=== PATIENT | male | born 1960 | race Caucasian/White ===

== ENCOUNTER 2019-02-09 13:11 | Inpatient (IN) ==
[2019-02-09] MEDS ORDERED: ASPIRIN PO ONE (13:16)
--- NOTE | 2019-02-09 13:38 | PROVIDER DOCUMENTATION ---
HPI-Chest Pain - General Chief Complaint: Chest Pain Stated Complaint: HEART PT-CP Time Seen by Provider: 02/09/19 13:21 Source: patient Allergies/Adverse Reactions: Patient Allergies Allergy/AdvReac Type Severity Reaction Status Date / Time No Known Allergies Allergy Verified 02/09/19 13:15 Home Medications: Home Medication List Medication Instructions Recorded Confirmed Last Taken Type Clonidine HCl 0.1 mg PO TID PRN #60 tablet 02/16/18 Unknown Rx Hydrocodone/APAP 5 mg/325 mg 1 tab PO Q6H PRN PRN #12 tab 08/12/18 Unknown Rx [[place]-5] - History of Present Illness-CP Nature of Presenting Problem: Pt. is 58 yom that presents with c/o chest pressure for two days. He reports he recently had stints placed at several months ago. He states yesterday he was coming to the ED but belched and felt better so he waited but today he is no better. He denies any N/V, but states he gets SOB with any exertion. He denies any other complaint. Location: reports: substernal. denies: central, epigastric, shoulder, back, abdomen, other Chest Pain Radiation: reports: no radiation. denies: jaw, arms, neck, shoulders, back, sternal notch, epigastric, other Quality of Pain: reports: pressure, tightness. denies: aching, indigestion, throbbing Severity in ED: mild Onset/Duration: gradual, 2 days ago Timing: still present Context/Activities at Onset: reports: none. denies: light activity, moderate ac tivity, vigorous activity, recent emotional stress, recent physical stress, recent trauma history, possible bad food, cold exposure, eating, out of country travel, rest, sleep, sexual activity, other Modifying Factors: improves with: nothing Associated Symptoms: reports: heartburn. denies: denies symptoms, abdominal pain, back pain, diaphoresis, dizziness, edema, fatigue, fever/chills, headache, nausea, rash, shortness of breath, swelling/lump in chest, syncope, vomiting, weakness Nitro Today/Relief: no nitro taken today Aspirin Treatment Today: 81 mg x 1, provided at home Prior Chest Pain/Cardiac Workup: reports: cardiac cath (In the last several months with stint placement) Similar Symptoms Previously?: No Recently Seen Here or By Another Healthcare Provider: No Review of Systems - Adult - REVIEW OF SYSTEMS - ADULT Constitutional: reports: no symptoms reported Eyes: reports: no symptoms reported Ears, Nose, Mouth & Throat: reports: no symptoms reported Cardiovascular: reports: see HPI, chest pain. denies: orthopnea, palpitations, poor circulation, syncope Respiratory: reports: see HPI, dyspnea on exertion, shortness of breath. denies: chronic cough, hemoptysis, pleurisy Gastrointestinal: reports: see HPI, frequent heartburn. denies: constipation, difficulty swallowing, vomiting Genitourinary: reports: no symptoms reported Musculoskeletal: reports: no symptoms reported Integumentary: reports: no symptoms reported Neurological: reports: no symptoms reported Psychiatric: reports: no symptoms reported Past History - Adult - PAST MEDICAL HISTORY-ADULT Review of Records: reports: Old Records Reviewed, Nursing Assessment Review, Medications Reviewed, Social history reviewed & non-contributory. Cardiovascular: reports: CAD, HTN, hyperlipidemia Gastrointestinal: reports: GERD Neurological: reports: CVA Other Conditions: reports: denies history - PRIOR SURGERIES/PROCEDURES Surgical/Procedure History: reports: cardiac stent, hernia repair - IMMUNIZATION STATUS Childhood Immunizations: See Nurse Assessment Flu Vaccine: See Nurse Assessment - FAMILY HISTORY Family History: reviewed, not pertinent - SOCIAL HISTORY Smoking: non-smoker Physical Exam-General - PHYSICAL EXAM-ADULT Initial Vital Signs Reviewed: Yes - CONSTITUTIONAL General Appearance: alert, no apparent distress. negative: anxious, slow to respond, obtunded, combative - EYES Eyes: PERRL/EOMI, pink conjunctivae - HEAD, EARS, NOSE, MOUTH & THROAT HENMT: normocephalic/atraumatic, moist mucous membranes - NECK Neck: non-tender, full range of motion, supple, normal inspection - RESPIRATORY Respiratory: lungs clear, normal breath sounds - CARDIOVASCULAR Cardiovascular: regular rate, rhythm, no JVD, bradycardia. negative: extra beats, friction rub, irregularly irregular - GASTROINTESTINAL (ABDOMEN) Abdominal Exam: normal bowel sounds, non tender, soft - LYMPHATIC Lymphatic: no adenopathy. negative: axilla node tender, cervical node tenderness - MUSCULOSKELETAL Back Exam: normal inspection, no CVA tenderness, no vertebral tenderness Extremity: normal range of motion, non-tender, normal gait, normal inspection Peripheral Pulses: radial (R): 2+, radial (L): 2+ - SKIN Integumentary: normal color, normal turgor, warm/dry - NEUROLOGIC Neurologic: grossly normal, no motor/sensory deficits - PSYCHIATRIC Psych/Mental Status: normal mood/affect, normal thought content, normal thought process, oriented x 3. negative: anxious, paranoid, tearful - HEART Score HEART Score: History: Highly Suspicious HEART Score: ECG: Normal HEART Score: Age: 45-65 Years HEART Score: Risk Factors for Atherosclerotic Disease: > or = 3 Risk Factors or History of Atherosclerotic Disease HEART Score: Troponin: < or = Normal Limit Total HEART Score:: 5 Progress - PLAN OF CARE/RESULTS Progress/Plan/Lab Results: Vital Signs - 8 hr 02/09/19 13:12 02/09/19 13:26 02/09/19 14:46 Temperature 97 F L Pulse Rate 54 L 50 L 46 L Respiratory Rate 16 19 16 Blood Pressure 149/91 129/90 128/87 O2 Sat by Pulse Oximetry 99 98 95 Laboratory Results - last 24 hr 02/09/19 02/09/19 02/09/19 13:45 13:45 13:45 WBC 5.65 RBC 4.76 Hgb 15.0 Hct 43.6 MCV 91.6 MCH 31.5 H MCHC 34.4 RDW Std Deviation 12.7 Plt Count 193 MPV 10.6 H Neut % (Auto) 56.1 Lymph % (Auto) 30.3 [place] % (Auto) 11.2 H Eos % (Auto) 1.9 Baso % (Auto) 0.5 Neut # (Auto) 3.17 Lymph # (Auto) 1.71 Alger # (Auto) 0.63 H Eos # (Auto) 0.11 Baso # (Auto) 0.03 PT INR PTT (Actin FS) Sodium 137 Potassium 4.3 Chloride 98 Carbon Dioxide 28 Anion Gap 11 BUN 18 Creatinine 1.4 H Estimated GFR/1.73 m2 52 BUN/Creatinine Ratio 13 Glucose 89 Calculated Osmolality 275 Calcium 9.6 Total Bilirubin 0.43 AST 26 ALT 39 Alkaline Phosphatase 76 Creatine Kinase 287 H Creatine Kinase Index 0.8 CK-MB (CK-2) 2.20 Troponin T Bmw-T-Tyldejngqwc Pept 44 Total Protein 7.2 Albumin 4.6 Globulin 2.6 Albumin/Globulin Ratio 1.8 02/09/19 02/09/19 13:45 13:45 WBC RBC Hgb Hct MCV MCH MCHC RDW Std Deviation Plt Count MPV Neut % (Auto) Lymph % (Auto) [place] % (Auto) Eos % (Auto) Baso % (Auto) Neut # (Auto) Lymph # (Auto) [place] # (Auto) Eos # (Auto) Baso # (Auto) PT 13.8 INR 0.98 PTT (Actin FS) 29.0 Sodium Potassium Chloride Carbon Dioxide Anion Gap BUN Creatinine Estimated GFR/1.73 m2 BUN/Creatinine Ratio Glucose Calculated Osmolality Calcium Total Bilirubin AST ALT Alkaline Phosphatase Creatine Kinase Creatine Kinase Index CK-MB (CK-2) Troponin T < 0.010 Vfv-P-Eoxofafbtor Pept Total Protein Albumin Globulin Albumin/Globulin Ratio Orders Category Date Time Status Cardiac Monitoring DIRECTED Care 02/09/19 13:17 Active Oxygen Therapy- ED Nursing DIRECTED Care 02/09/19 13:17 Active Saline Loc NOW Care 02/09/19 13:17 Active CHEST-2 VIEWS [RAD] Stat Exams 02/09/19 13:17 Taken CBC WITH ELECTRONIC DIFF [HEME] Stat Lab 02/09/19 13:45 Completed CK PROFILE [SP CHEM] Stat Lab 02/09/19 13:45 Completed COMPREHENSIVE METABOLIC PANEL [CHEM] Stat Lab 02/09/19 13:45 Completed PRO B-NATRIURETIC PEPTIDE Stat Lab 02/09/19 13:45 Completed PROTIME WITH INR [COAG] Stat Lab 02/09/19 13:45 Completed PTT [COAG] Stat Lab 02/09/19 13:45 Completed TROPONIN T Stat Lab 02/09/19 13:45 Completed Aspirin Med 02/09/19 13:16 Discontinued 325 mg PO NOW ONE CP/SOB/Palp >45 yrs of Age Stat Oth 02/09/19 13:16 Ordered EKG [EKG] Stat Ther 02/09/19 13:17 Ordered Laboratory Tests 02/09/19 02/09/19 02/09/19 13:45 13:45 13:45 WBC 5.65 RBC 4.76 Hgb 15.0 Hct 43.6 MCV 91.6 MCH 31.5 H MCHC 34.4 RDW Std Deviation 12.7 Plt Count 193 MPV 10.6 H Neut % (Auto) 56.1 Lymph % (Auto) 30.3 Alger % (Auto) 11.2 H Eos % (Auto) 1.9 Baso % (Auto) 0.5 Neut # (Auto) 3.17 Lymph # (Auto) 1.71 Alger # (Auto) 0.63 H Eos # (Auto) 0.11 Baso # (Auto) 0.03 PT INR PTT (Actin FS) Sodium 137 Potassium 4.3 Chloride 98 Carbon Dioxide 28 Anion Gap 11 BUN 18 Creatinine 1.4 H Estimated GFR/1.73 m2 52 BUN/Creatinine Ratio 13 Glucose 89 Calculated Osmolality 275 Calcium 9.6 Total Bilirubin 0.43 AST 26 ALT 39 Alkaline Phosphatase 76 Creatine Kinase 287 H Creatine Kinase Index 0.8 CK-MB (CK-2) 2.20 Troponin T Ugg-T-Habkdkqmebl Pept 44 Total Protein 7.2 Albumin 4.6 Globulin 2.6 Albumin/Globulin Ratio 1.8 02/09/19 02/09/19 13:45 13:45 WBC RBC Hgb Hct MCV MCH MCHC RDW Std Deviation Plt Count MPV Neut % (Auto) Lymph % (Auto) Alger % (Auto) Eos % (Auto) Baso % (Auto) Neut # (Auto) Lymph # (Auto) Alger # (Auto) Eos # (Auto) Baso # (Auto) PT 13.8 INR 0.98 PTT (Actin FS) 29.0 Sodium Potassium Chloride Carbon Dioxide Anion Gap BUN Creatinine Estimated GFR/1.73 m2 BUN/Creatinine Ratio Glucose Calculated Osmolality Calcium Total Bilirubin AST ALT Alkaline Phosphatase Creatine Kinase Creatine Kinase Index CK-MB (CK-2) Troponin T < 0.010 Ocf-L-Ckcnoxdabcf Pept Total Protein Albumin Globulin Albumin/Globulin Ratio Discussed results and plan of care with patient. Patient agrees with plan and verbalizes understanding. Result Diagrams: 02/09/19 13:45 02/09/19 13:45 - EKG 1 Time of EKG reading by physician:: 13:34 EKG Read and Signed by:: Juan Carlos Montana EKG Interpretation (*Must complete 3 of following elements*): Abnormal Rate: 49 Rhythm: Sinus Mak - XRAY 1 XRAY Study: Chest XRAY Interpretation: STEPHEN Guerrero) - CONSULTS/PCP/HOSPITALIST Notification #1 *Consult/PCP/Hospitalist*: MIGUEL ÁNGEL Martinez for Dr. Ryder Time Discussed: 14:56 Reason/Comments: Admission Consult Disposition: Will see in ED, Admit Departure - Departure Date of Disposition Decision: 02/09/19 Time of Disposition Decision: 14:53 DIAGNOSIS: Chest pain Qualifiers: Chest pain type: unspecified Qualified Code(s): R07.9 - Chest pain, unspecified Disposition: ADMITTED INPATIENT 09 Certified Medical Emergency: Emergent Condition: Stable Referrals and Follow-Ups: Shahrzad Hand [Primary Care Provider] - - Critical Care Note This patient required my direct & personal management of CC.: No Attestation - Physician/ MITCH Attestation Patient care was provided by Advanced Practice Provider:: Yes Advanced Practice Provider:: Jewell Vazquez Advanced Practice Provider documentation review:: The Mid-level provider documentation, treatment plan and medical decision making was reviewed by the physician who agrees with all treatment and medical decision making by the MLP. The physician spent face to face time with patient:: No Advanced Practice Provider documentation review:: Supervising physician onsite and consulted in the evaluation and care of this patient. The physician did not have a face to face encounter with the patient.
[2019-02-09 14:02] LABS: BASO# 0.03 X1000 (0.0-0.2); BASO% 0.5 % (0.0-0.8); EOS# 0.11 X1000 (0.0-0.7); EOS% 1.9 % (0.0-10.0); HEMATOCRIT 43.6 % (42.0-52.0); LYMPH# 1.71 X1000 (1.2-3.4); LYMPH% 30.3 % (20.5-51.1); MCH 31.5 PG (27-31); MCHC 34.4 g/dL (33-37); MCV 91.6 FL (81-99); MONO# 0.63 X1000 (0.11-0.59); MONO% 11.2 % (1.7-9.3); MPV 10.6 FL (7.4-10.4); NEUT# 3.17 X1000 (1.4-6.5); NEUT% 56.1 % (42.2-75.2); PLT 193 X1000 (130-400); RBC 4.76 XMIL (4.7-6.1); RDW 12.7 % (11.5-14.5); WBC 5.65 X1000 (4.8-10.8)
[2019-02-09 14:19] LABS: INR 0.98; PROTIME 13.8 Seconds (11.0-16.0)
[2019-02-09 14:31] LABS: ALB/GLOB RATIO 1.8; ALBUMIN 4.6 g/dL (3.5-5.0); CALCIUM 9.6 mg/dL (8.8-10.2); CREATININE 1.4 mg/dL (0.7-1.2); POTASSIUM 4.3 mmol/L (3.5-5.1); TOTAL BILIRUBIN 0.43 mg/dL (0.20-1.00); TOTAL PROTEIN 7.2 g/dL (6.3-8.3)
[2019-02-09 14:51] LABS: CK INDEX 0.8 (0.0-2.5); CK-MB 2.2 ng/mL (0.0-5.0)
--- NOTE | 2019-02-09 16:06 | Diag Imaging Result Doc PS360 ---
EXAM: CHEST-2 VIEWS INDICATION: cp TECHNIQUE: 2 views COMPARISON: 02/16/2018 FINDINGS: The lungs are grossly clear. There is no discrete pleural fluid collection or pneumothorax. The cardiomediastinal silhouette and central vasculature are grossly unremarkable. IMPRESSION: No evidence of acute pathology by plain radiograph. Electronically signed by Collin Hanson 02/09/2019 4:03 PM
[2019-02-09] MEDS ORDERED: NITROGLYCERIN SL PRN ×2 (17:08)
[2019-02-09] MEDS ORDERED: ZOFRAN IV PRN (17:08)
[2019-02-09] MEDS ORDERED: TYLENOL PO PRN (17:08)
[2019-02-09 18:33] LABS: CK INDEX 0.8 (0.0-2.5); CK-MB 2.27 ng/mL (0.0-5.0)
--- NOTE | 2019-02-09 20:54 | EKG Report ---
Test Performed on : 02/09/2019 1:17:48 PM Test Reason : cp Blood Pressure : / mmHG Vent. Rate : 049 BPM Atrial Rate : 049 BPM P-R Int : 166 ms QRS Dur : 116 ms QT Int : 484 ms P-R-T Axes : 040 -24 053 degrees QTc Int : 437 ms Sinus bradycardia. Possible Anterior infarct (cited on or before 16-FEB-2018) Abnormal ECG When compared with ECG of 16-FEB-2018 12:28, Nonspecific T wave abnormality, worse in Lateral leads Unconfirmed Result
[2019-02-09] MEDS: NS 1,000 ML IV SCH (21:29)
--- NOTE | 2019-02-09 22:50 | HISTORY AND PHYSICAL ---
PRIMARY CARE PROVIDER: Dr. Shahrzad Hand. CREW LEADER: Dr. Kelly. CHIEF COMPLAINT: Chest heaviness and lightheadedness for 4-5 days. HISTORY OF PRESENT ILLNESS: Mr. Stevens is a 58-year-old male who carries a past medical history of probable VA; however, he does not remember having an VA. He went to [facility] at least a year to a year and a half ago, and received a stent. Hypertension, hyperlipidemia, GERD. He came to the ED complaining of epigastric chest heaviness. He felt like someone was sitting on his chest. He has been lightheaded over the last 4-5 days. It has continued to increase. The pain is relieved with rest, and now with any exertion he gets this heaviness and lightheadedness, as well as an increasing in shortness of breath. He states a couple of months ago he was fully evaluated by Dr. Kelly. He underwent an MRI, echocardiogram as well as wore a heart monitor for some time. He states he turned that in over a month ago. He was found to be bradycardic. They cut his Coreg in half; however, he did take his Coreg this a.m. He feels like he was having the same symptoms that he had a few months ago when he followed up with Dr. Kelly. He was having the same chest discomfort and lightheadedness. His heart rate was in the 50s in the ED. He has had 1 set of negative cardiac enzymes. We will admit him in observation status, continue to trend his cardiac enzymes as well as give him some IV fluids for a probable acute kidney injury. Unsure if there is any chronic kidney disease. The patient is a poor historian. REVIEW OF SYSTEMS: Twelve-point review of systems completed and negative except for those mentioned in HPI. PAST MEDICAL HISTORY: 1. Coronary artery disease, status post myocardial infarction with stenting. 2. Hypertension. 3. Hyperlipidemia. 4. Questionable TIA. The patient did undergo MRI. He was unsure if this was an actual diagnosis or just contributing to his bradycardia. PAST SURGICAL HISTORY: 1. Double hernia repair. 2. Bilateral plantar fasciitis release. 3. Bilateral knee arthroscopy. 4. Left carpal tunnel. 5. Right wrist tendon reattachment. 6. Heart catheterization in [place] in 2003. He does not believe that he received a stent at that time. 7. Heart catheterization with stent placement at [facility] at least a year to a year and a half ago. ALLERGIES: No known drug allergies. MEDICATIONS: Home medications have not correctly been verified. The patient showed me his medication list. He takes aspirin, Coreg, valsartan, Lipitor, Norvasc, Prilosec, Imdur, Ranexa and Plavix; however, he has not had his Plavix filled in an unknown length of time. PHYSICAL EXAMINATION: VITAL SIGNS: Temperature is 97 degrees, heart rate 48, respirations 21, blood pressure 137/90, O2 is 96% on room air. GENERAL: Mr. Stevens is a 58-year-old male who is sitting on the stretcher in no acute distress. HEENT: Atraumatic, normocephalic. PERRL. NECK: Supple. Trachea midline. CARDIOVASCULAR: S1, S2 appreciated. No murmurs, gallops or rubs noted. RESPIRATORY: Lung sounds clear bilaterally. GASTROINTESTINAL: Soft, nontender, nondistended. Positive bowel sounds x4 quadrants. EXTREMITIES: Lower extremities are negative for edema. He does have a knee brace on his left knee. SKIN: Warm, dry and intact. NEUROLOGIC: No focal deficits noted. DIAGNOSTIC DATA: Chest x-ray: No evidence of acute pathology. LABORATORY DATA: White count 5, hemoglobin and hematocrit 15 and 43, platelet count 193,000. Sodium 137, potassium 4.3, BUN 18, creatinine 1.4, blood glucose is 89. CK 287, CK index 0.8, CK- MB 2.20. Troponin less than 0.010. ProBNP was 44. ASSESSMENT AND PLAN: 1. Atypical chest pain in a patient with known coronary artery disease, status post stenting. We will continue to monitor patient's cardiac enzymes. First set was negative. He did have an echocardiogram back in 10/2018 that showed an ejection fraction of 50%. We will continue on his home medications when verified. Check a lipid profile in the a.m. The patient is somewhat of a poor historian. 2. Acute kidney injury. We will initiate him on some low-dose intravenous fluids. Recheck his creatinine in the morning. 3. Hypertension. Continue home medications when verified. 4. Bradycardia. We will hold his Coreg. 5. Hyperlipidemia. Continue his Lipitor. Check a lipid profile. Further recommendation to follow physician evaluation, laboratory and diagnostic data. Dictated by MIGUEL ÁNGEL Mills for Kaveh Ryder MD cc: MD Shahrzad Amanda MD Agree with the above. the following is my own face to face assessment. patient with chest pressure and dyspnea on exertion. reportedly had significant bradycardia previously resulting in symptoms but no significant issues on recent holter monitor. slightly bradycardic here but history concerning for cardiac event. initial troponin negative. trend troponins and monitor on tele. heart: RRR. Lungs: CTAB. no LE edema. MTDD
[2019-02-10 02:29] LABS: CK INDEX 0.9 (0.0-2.5)
[2019-02-10] MEDS: PRILOSEC PO SCH (06:17)
[2019-02-10 07:14] LABS: BASO# 0.03 X1000 (0.0-0.2); BASO% 0.5 % (0.0-0.8); EOS# 0.15 X1000 (0.0-0.7); EOS% 2.6 % (0.0-10.0); HEMATOCRIT 44.1 % (42.0-52.0); HEMOGLOBIN 15.1 g/dL (14.0-18.0); LYMPH# 1.61 X1000 (1.2-3.4); LYMPH% 28.1 % (20.5-51.1); MCH 31.5 PG (27-31); MCHC 34.2 g/dL (33-37); MCV 91.9 FL (81-99); MONO# 0.64 X1000 (0.11-0.59); MONO% 11.2 % (1.7-9.3); NEUT% 57.6 % (42.2-75.2); PLT 195 X1000 (130-400); RDW 12.7 % (11.5-14.5); WBC 5.73 X1000 (4.8-10.8)
[2019-02-10 07:33] LABS: AGAP 9; ALB/GLOB RATIO 1.6; ALBUMIN 4.1 g/dL (3.5-5.0); ALKALINE PHOSPHATASE 74 U/L (32-122); BUN 15 mg/dL (8-22); CALCIUM 9.2 mg/dL (8.8-10.2); CHLORIDE 101 mmol/L (98-107); CHOLESTEROL 220 mg/dL (0-200); COSMO 278; CREATININE 1.2 mg/dL (0.7-1.2); ESTIMATED GFR > 60; GLUCOSE 98 mg/dL (70-104); GOT 21 U/L (10-34); GPT 35 U/L (10-44); HDL 27 mg/dL (35-55); LDL 149 mg/dL; MAGNESIUM 2.1 mg/dL (1.5-2.7); POTASSIUM 4.1 mmol/L (3.5-5.1); SODIUM 139 mmol/L (136-145); TCO2 29 mmol/L (25-35); TOTAL BILIRUBIN 0.43 mg/dL (0.20-1.00); TOTAL PROTEIN 6.6 g/dL (6.3-8.3); TRIGLYCERIDES 220 mg/dL (39-160); VLDL 44 mg/dL
--- NOTE | 2019-02-10 07:57 | Diag Imaging Result Doc PS360 ---
EXAM: CHEST-PORTABLE INDICATION: Chest Pain TECHNIQUE: One view COMPARISON: 02/09/2019 FINDINGS: There is stable mild elevation of the right hemidiaphragm. The lungs are grossly clear. There is no discrete pleural fluid collection or pneumothorax. The cardiomediastinal silhouette and central vasculature are grossly unremarkable. IMPRESSION: No evidence of acute pathology by plain radiograph. Electronically signed by Collin Hanson 02/10/2019 7:54 AM
[2019-02-10] MEDS: NS 1,000 ML IV SCH (08:39)
[2019-02-10] MEDS ORDERED: ASPIRIN PO SCH (09:00)
[2019-02-10] MEDS ORDERED: RANEXA PO SCH (09:30)
[2019-02-10] MEDS ORDERED: COREG PO SCH (09:30)
[2019-02-10] MEDS: PLAVIX PO SCH (11:32)
[2019-02-10] MEDS: ASPIRIN EC PO SCH (11:33)
--- NOTE | 2019-02-10 13:26 | CARDIOLOGY CONSULTATION ---
DATE: 02/10/2019 CHIEF COMPLAINT ON PRESENTATION: Chest pain. HISTORY OF PRESENT ILLNESS: Mr. Stevens is a 58-year-old, white male with a history of coronary artery disease. He last had a cardiac catheterization in January of 2018. He was recently seeing Dr. Kelly, around a month ago, and had a down titration of his Coreg from 12.5 to 6.25 secondary to bradycardia. In the last 4 to 5 days, he has been getting relatively repetitive episodes of heaviness in his chest occurring with ambulation. They will resolve with rest. No diaphoresis. No shortness of breath occurring with these episodes. He reports compliance with all of his medications. PAST MEDICAL HISTORY: Significant for: 1. Coronary artery disease with previous PCI. His most recent catheterization was performed in January of 2018 in [place]. This demonstrated a normal left main. The left anterior descending was a diffusely diseased vessel in the mid segment up to 90% and a very small caliber vessel. The diagonal branch, likewise, was small in caliber and diffusely diseased up to 80-90%. The circumflex was small and essentially normal. There was a very large ramus with a 30-40% proximal narrowing after which there was a widely patent stent. The right coronary had mild luminal irregularities in the mid segment. Posterolateral branch was normal. Posterior descending artery had a distal 90% lesion in a small area. The ejection fraction on that study was 25%. 2. Hypertension. 3. Hyperlipidemia. 4. Ischemic cardiomyopathy. SOCIAL HISTORY: The patient denies any current tobacco use. FAMILY HISTORY: Significant for hypertension. REVIEW OF SYSTEMS: A 10 system review of systems is negative except for those things mentioned in the HPI. PHYSICAL EXAMINATION: He is afebrile, heart rate 53, blood pressure 139/85. General: No acute distress. HEENT: Oropharynx is moist. Normal dentition. Eye examination shows pink conjunctivae and white sclerae. Neck: Examination shows no obvious thyromegaly or thyroid tenderness. Cardiovascular: He sounds to be in a regular rate and rhythm. He has no murmurs. He has no S3. He has no lower extremity edema. He has no carotid bruits. JVP is less than 8. Chest: Examination is clear bilaterally. No increased work of breathing. His abdomen is soft, nontender, nondistended. He has no obvious organomegaly. Skin: Examination is warm and dry throughout, without any rashes. Neurologic: He is moving all extremities well. He has no lateralizing deficits. PERTINENT DATA: He had an EKG performed, demonstrating sinus rhythm. He has some evidence of anterior scar. His chest x-ray demonstrated no evidence of acute pathology. He had a nuclear scan in 2017. That was reviewed. His lab data shows white count of 5.7, his hematocrit is 44, his platelet count is 195,000. His sodium is 139, potassium is 4.1, his BUN is 15, creatinine is 1.2. His LDL was 149, his HDL was 27. His proBNP is 44. His cardiac enzymes are negative. ASSESSMENT: Mr. Stevens is a 58-year-old gentleman who has been experiencing episodes of angina after down titration of his antiischemic, Coreg. PLAN: I will restart his amlodipine as well as his Imdur. I will titrate up his Imdur to 60, titrate his Ranexa to 1000 b.i.d. I will increase his atorvastatin to 40 mg at bedtime. We will proceed with myocardial perfusion imaging. If the patient is ischemic in the anterior wall, then it appears most likely consistent with the LAD disease and I would probably continue to treat medically unless he continues to have symptoms. If he has ischemia in a new location like the lateral wall or the inferior wall, then may consider cardiac catheterization. Further recommendations to follow the stress testing. cc: Jem Huang MD
--- NOTE | 2019-02-10 15:54 | PROGRESS NOTE ---
DATE: 02/10/2019 INTERVAL HISTORY: The patient with no further episodes of dyspnea, chest pain, or lightheadedness. No acute events overnight. No new complaints. REVIEW OF SYSTEMS: Twelve point review of systems negative except as per interval history. LABS: CBC unremarkable. Complete metabolic panel unremarkable aside from BUN 15, creatinine 1.2, CK 231. HDL 27, LDL 149, triglycerides 220. VITALS: T-max 97.9 degrees, pulse 63, respirations 16, blood pressure 139/85, O2 saturation 99% on room air. PHYSICAL EXAMINATION: General: No acute distress. Vitals: As above. HEENT: Normocephalic, atraumatic. Moist mucous membranes. No cervical adenopathy. Cardiovascular: Slightly bradycardic but regular. No murmurs noted. Pulmonary: Clear to auscultation bilaterally. No wheezing, rales, or rhonchi. Abdomen: Soft, nontender, nondistended. Bowel sounds positive. Extremities: Peripheral pulses intact. No clubbing, cyanosis, or edema. Neurologic: Cranial nerves grossly intact. No focal deficits identified. Psychiatric: Normal mood and affect. Awake, alert, oriented x3. Skin: No new rashes or lesions identified. ASSESSMENT AND PLAN: 1. Chest pain, dyspnea on exertion, dizziness. Etiology not entirely certain but strongly suspect cardiac origin. The patient reportedly had fairly significant bradycardia with Coreg previously, and his dose was reduced. Slightly mild bradycardia here. That is one possibility, although reportedly recent Holter showed no issues with his rhythm. The patient also with fairly severe heart failure, which could be the culprit. Cardiology consulted and evaluating. No events while he has been here. Cardiology planning on a stress test in the morning to further evaluate. 2. Acute kidney injury versus chronic kidney disease. The patient with creatinine 1.4 on admission. Exact baseline uncertain. Slightly improved today to 1.2 but suspect this is close to or at his baseline. Continue to monitor and avoid nephrotoxic agents as much as possible. 3. Chronic systolic congestive heart failure. Cardiology reports that the patient had a cardiac cath approximately a year ago where his EF was 25. Patient restarted on Plavix, Imdur, aspirin, Entresto. No signs of gross volume overload at this time. Continue to monitor. 4. Bradycardia. The patient with mild intermittent bradycardia off Coreg. Coreg restarted by Cardiology at a lower dose. Monitor closely. 5. Obesity. Diet and exercise have been discussed. 6. Pulmonary hypertension noted on most recent echo in our system.
--- NOTE | 2019-02-10 18:22 | EKG Report ---
Test Performed on : 02/10/2019 06:21:55 AM Test Reason : cp Blood Pressure : / mmHG Vent. Rate : 046 BPM Atrial Rate : 046 BPM P-R Int : 186 ms QRS Dur : 116 ms QT Int : 438 ms P-R-T Axes : 051 -33 106 degrees QTc Int : 383 ms Sinus bradycardia. Left axis deviation Possible Anterior infarct (cited on or before 16-FEB-2018) Abnormal ECG When compared with ECG of 09-FEB-2019 13:17, (Unconfirmed) QT has shortened Confirmed by Carlos Ling MD ([id number]) on 02/12/2019 9:10:54 PM
[2019-02-10] MEDS ORDERED: LIPITOR PO SCH (21:00)
[2019-02-10] MEDS: LIPITOR PO SCH (21:34)
[2019-02-10] MEDS: RANEXA PO SCH (21:34)
[2019-02-10] MEDS: ENTRESTO 49 MG-51 MG TABLET PO SCH (21:41)
[2019-02-11] MEDS: PRILOSEC PO SCH (06:09)
[2019-02-11] MEDS: COREG PO SCH ×3 (06:09→20:19)
[2019-02-11] MEDS ORDERED: PRILOSEC PO SCH (07:00)
[2019-02-11] MEDS ORDERED: IMDUR PO SCH (09:00)
[2019-02-11] MEDS ORDERED: LEXISCAN ONE (12:53)
[2019-02-11] MEDS: ASPIRIN EC PO SCH (13:02)
[2019-02-11] MEDS: ENTRESTO 49 MG-51 MG TABLET PO SCH ×2 (13:03→20:19)
[2019-02-11] MEDS: RANEXA PO SCH ×2 (13:03→20:19)
[2019-02-11] MEDS: IMDUR PO SCH (16:40)
[2019-02-11] MEDS: NORVASC PO SCH (16:40)
[2019-02-11] MEDS: PLAVIX PO SCH (16:40)
--- NOTE | 2019-02-11 17:32 | PROGRESS NOTE ---
DATE: 02/11/2019 INTERVAL HISTORY: The patient currently n.p.o. for stress test later this morning. No acute events overnight. No new complaints. REVIEW OF SYSTEMS: Twelve point review of systems negative except as per interval history. VITALS: T-max 98 degrees, pulse 62, respirations 20, blood pressure 144/90, O2 saturation 100% on room air. PHYSICAL EXAMINATION: General: No acute distress. Vitals: As above. HEENT: Normocephalic, atraumatic. Moist mucous membranes. No cervical adenopathy. Cardiovascular: Minimally bradycardic but regular. No murmurs noted. Pulmonary: Clear to auscultation bilaterally. No wheezing, rales, or rhonchi. Abdomen: Soft, nontender, nondistended. Bowel sounds positive. Extremities: Peripheral pulses intact. No clubbing, cyanosis, or edema. Neurologic: Cranial nerves grossly intact. No focal deficits identified. Psychiatric: Normal mood and affect. Awake, alert, oriented x3. Skin: No new rashes or lesions identified. ASSESSMENT AND PLAN: 1. Chest pain, dyspnea, dyspnea on exertion, dizziness. The etiology is not entirely certain but likely cardiac. Patient reportedly had fairly significant bradycardia with Coreg previously and his dose was reduced. Still mildly bradycardic here but asymptomatic with it over the last day or two. The patient also with fairly severe heart failure, which could be contributing. Cardiology on board and planning on stress test today to further evaluate. We will await further recommendations from cardiology. 2. Acute kidney injury versus chronic kidney disease. The patient with creatinine 1.4 on admission, exact baseline uncertain. Slight improved to 1.2, but just be slight lab variation. Recheck pending. Continue to monitor. 3. Chronic systolic congestive heart failure. Cardiology reports the patient had a heart catheterization at [place] approximately a year ago during which is ejection fraction was 25%. Patient restarted on Plavix, Imdur, aspirin and Entresto. No signs of gross volume overload at this time. Continue to monitor. 4. Bradycardia. Patient with mild intermittent bradycardia off Coreg. Coreg restarted by cardiology at a lower dose. Heart rate has remained roughly stable with mild bradycardia, but patient seems to be asymptomatic with it here. 5. Obesity. Diet and exercise been discussed. 6. Pulmonary hypertension noted on most recent echo in our system, stable.
--- NOTE | 2019-02-11 18:48 | CARDIOLOGY PROGRESS NOTE ---
DATE: 02/11/2019 SUBJECTIVE: The patient has not had any episodes of chest pain overnight. PHYSICAL EXAMINATION: He is afebrile. Heart rate of 54, blood pressure 144/93.General: He is in no acute distress. Cardiovascular: He sounds to be in a regular rate and rhythm. He has no murmurs, he has no S3. He has no lower extremity edema. His chest exam is clear bilaterally. He has no increased work of breathing. Abdomen: Soft, nontender. PERTINENT DATA: White count 5.7, hematocrit 44, platelet count is 195,000. His sodium is 139, potassium 4.1, BUN 15, creatinine 1.2. ASSESSMENT: Mr. Stevens is a 58-year-old gentleman with a ischemic cardiomyopathy. PLAN: He has had adjustment in his antianginals including increasing his Ranexa and increasing Imdur. He has been reinitiated on the carvedilol. For the time being we will follow up on the nuclear scan results. Notably had significant LAD disease previously that did not seem amenable to intervention as he had extremely small vessel. For now we will follow up on nuclear results and if it is unremarkable then he can likely be discharged home. cc: Jem Huang MD
[2019-02-11] MEDS: LIPITOR PO SCH (20:19)
--- NOTE | 2019-02-11 22:15 | Diag Imaging Result Document ---
PROCEDURE NAME: MYOCARDIAL PERF SCAN, STR/REST - 02/11/2019 STUDY: Rest/stress Lexiscan myocardial perfusion study. INDICATION: A 58-year-old male with chest pain. REQUESTING DOCTOR: Hospitalist. DESCRIPTION: The patient came into the nuclear laboratory, received resting injection of technetium 99 sestamibi 14.7 mCi. Multiple tomographic views of the cardiac structures were obtained at rest. Subsequently, the patient underwent infusion of Lexiscan 0.4 mg. At peak infusion, injected with technetium 99 sestamibi 47.8 mCi. Multiple tomographic views of the cardiac structures were obtained following the completion of the protocol. SUMMARY OF THE ELECTROCARDIOGRAPHIC PORTION OF THE STUDY: Resting ECG shows sinus rhythm, rate 59 beats per minute. Resting blood pressure is 133/95. Resting ECG shows a left anterior fascicular block with poor R wave progression. During the protocol, the heart rate increased to a maximum of 79 beats per minute. Blood pressure went up to 145/93. The patient reported no chest pain, shortness of breath, or palpitations. The ECG showed no significant abnormality. Following completion of the test, the heart rate and blood pressure returned back to their baseline. In summary, the electrocardiographic response to infusion of Lexiscan is deemed to be negative for ischemia. SUMMARY OF THE MYOCARDIAL PERFUSION PORTION OF THE STUDY: Poststress tomographic views of the left ventricle showed a very mild basal inferior and apical anterior defect. This is very focal. The rest images showed that this defect is fixed. The polar plots revealed the same. There is suggestion of attenuation of artifact involving the apical anterior wall in a very tiny area and also the basal inferior wall in a very tiny area. There is no convincing evidence of inducible ischemia. Gated SPECT shows decreased ejection fraction estimated at 44%, enlarged ventricular chamber, and global hypokinesis of mild degree. The Myometrix protocol shows ejection fraction of 39%. The lung/heart ratio is elevated at 0.46. The TID is 1.04. SUMMARY: This study shows: 1. Unremarkable electrocardiographic response to an infusion of Lexiscan. 2. Mildly abnormal poststress myocardial perfusion scan. There is no scintigraphic evidence of inducible ischemia. 3. There is enlargement of the left ventricular chamber with a tiny focal apical anterior defect as well as a focal basal inferior defect, both of which may represent attenuation artifact. 4. Mild to moderately decreased ejection fraction estimated at 39% to 44%. Clinical correlation is recommended. The study could be consistent with hypertensive heart disease. cc: James Neves MD
[2019-02-12] MEDS: PRILOSEC PO SCH (06:03)
[2019-02-12 08:15] LABS: BASO# 0.03 X1000 (0.0-0.2); BASO% 0.5 % (0.0-0.8); EOS# 0.24 X1000 (0.0-0.7); HEMATOCRIT 42.2 % (42.0-52.0); HEMOGLOBIN 14.6 g/dL (14.0-18.0); LYMPH# 1.24 X1000 (1.2-3.4); LYMPH% 20.7 % (20.5-51.1); MCH 31.1 PG (27-31); MCHC 34.6 g/dL (33-37); MONO# 0.65 X1000 (0.11-0.59); MONO% 10.9 % (1.7-9.3); MPV 10.8 FL (7.4-10.4); NEUT# 3.83 X1000 (1.4-6.5); NEUT% 63.9 % (42.2-75.2); PLT 183 X1000 (130-400); RBC 4.69 XMIL (4.7-6.1); RDW 12.3 % (11.5-14.5); WBC 5.99 X1000 (4.8-10.8)
[2019-02-12 08:47] LABS: AGAP 11; BUN 18 mg/dL (8-22); CHLORIDE 101 mmol/L (98-107); COSMO 276; CREATININE 1.1 mg/dL (0.7-1.2); ESTIMATED GFR > 60; GLUCOSE 101 mg/dL (70-104); POTASSIUM 4.3 mmol/L (3.5-5.1); SODIUM 137 mmol/L (136-145); TCO2 25 mmol/L (25-35)
[2019-02-12] MEDS: ENTRESTO 49 MG-51 MG TABLET PO SCH ×2 (08:54→20:49)
[2019-02-12] MEDS: PLAVIX PO SCH (08:54)
[2019-02-12] MEDS: ASPIRIN EC PO SCH (08:54)
[2019-02-12] MEDS: IMDUR PO SCH (08:54)
[2019-02-12] MEDS: COREG PO SCH (08:54)
[2019-02-12] MEDS: RANEXA PO SCH ×2 (08:54→20:49)
[2019-02-12] MEDS: NORVASC PO SCH (08:54)
--- NOTE | 2019-02-12 16:00 | CARDIOLOGY PROGRESS NOTE ---
DATE: 02/12/2019 SUBJECTIVE: Mr. Stevens has not had any chest pain. He is ambulating in the halls. Did have a little bit of lightheadedness early this morning. PHYSICAL EXAMINATION: Afebrile. Heart rate 54, blood pressure 116/69. He had a heart rate of 46 documented at 1942 yesterday, that seems to have been the low.General: He is in no acute distress. Cardiovascular: He sounds to be in a regular rate and rhythm. He has no murmurs. He has no S3. He has no lower extremity edema. Chest: Clear bilaterally. He has no increased work of breathing. Abdomen: Soft, nontender, nondistended. He has no obvious organomegaly. PERTINENT DATA: His telemetry was reviewed. It did not seem to show any significant degree of AV block. It is mild bradycardia. White count 5.9, hematocrit is 42, platelet count is 183,000. Sodium 137, BUN 18, creatinine is 1.1. LDL was 149. ASSESSMENT: Mr. Stevens is a 58-year-old gentleman with a history of coronary disease who presented with anginal symptoms. PLAN: The patient has had escalation of his antianginal medications including escalations of his Imdur and Ranexa. His Coreg was decreased secondary to relative bradycardia. He was placed on a higher intensity of statin therapy. At this point, we will have him follow up with Dr. Kelly in a couple weeks and do an outpatient KARIN to evaluate for bradycardia with his current beta-skyla dosage. His nuclear scan was performed and demonstrated what appeared to be fixed defect in the apex, which is consistent with his extremely small, severely diseased left anterior descending which previously has felt to be not a candidate for any sort of intervention. His ejection fraction was in the 40 to 44 percent range. He had no ischemic changes on his nuclear scan. cc: Jem Huang MD
--- NOTE | 2019-02-12 17:52 | PROGRESS NOTE ---
DATE: 02/12/2019 INTERVAL HISTORY: No acute events and Nuclear medicine stress test was unremarkable. There was no evidence of reversible ischemia on the Nuclear medicine stress test. SUBJECTIVE: He is feeling fine. In the morning time he had an episode of dizziness after he walked in the hallway And when he completed his shower. with heart rate of 40s when he was lying down in the bed. He is denying any chest pain. OBJECTIVE: Vital Signs: Temperature 97.5 degrees, pulse52 respiratory rate 18, blood pressure 120/75 saturating 98% on room air. PHYSICAL EXAMINATION: General: Morbidly obese. Not in acute distress. Oral cavity is moist. Lungs: Air entry bilaterally equal. No wheeze, rhonchi, crackles. Cardiovascular: S1, S2 normal. No murmur or gallop. Abdomen: Soft, nontender. He does have a heart rate of 55 on bedside monitor. Negative hepatojugular jugular reflex. No lower extremity edema. LABORATORY DATA: Suggestive of no abnormality in CBC or BMP. Nuclear medicine stress test results as noted was negative for any inducible ischemia with ejection fraction of 39 to 44%. ASSESSMENT AND PLAN: 1. Chest heaviness and dyspnea on exertion, likely because of residual LAD lesion, which was deemed not amenable to intervention. Cardiology on board. Nuclear medicine stress test was unremarkable for new inducible ischemia. His medical regimen has been optimized. Continue amlodipine, aspirin, clopidogrel, isosorbide mononitrate, and ranolazine with Entresto. His carvedilol dose is decreased to 3.125 b.i.d. 2. Episodes of dizziness occasionally intermittently coinciding with bradycardia. His carvedilol dose has already been decreased today during physical exertion he again developed dizziness. I am holding off on discharge until I get ultrasound of carotids to rule out any carotid stenosis which is unlikely, however, to contribute to his symptoms, but after discussion with the patient, I am going to go ahead and get the ultrasound carotid. 3. Acute kidney injury on presentation, now resolved. 4. Chronic systolic congestive heart failure. Continue medical management. He is not in volume overload. 5. Bradycardia due to beta blockers. His dose has been decreased. PLAN: The plan is to get an outpatient monitor at the time of discharge and outpatient Cardiology followup. DISPOSITION: I am holding off on discharge until I get carotid ultrasound to rule out any carotid artery stenosis since he does appear to have dizziness and blurring of vision occasionally after physical exertion, and sometimes at rest to rule out carotid artery stenosis. Plan of care discussed with him. All of his questions have been answered. cc: Luan Kent MD MTDD
[2019-02-12] MEDS: LIPITOR PO SCH (20:49)
[2019-02-13] MEDS: COREG PO SCH ×2 (02:10→09:10)
[2019-02-13] MEDS: PRILOSEC PO SCH (06:30)
[2019-02-13] MEDS: IMDUR PO SCH (09:10)
[2019-02-13] MEDS: PLAVIX PO SCH (09:10)
[2019-02-13] MEDS: ENTRESTO 49 MG-51 MG TABLET PO SCH (09:10)
[2019-02-13] MEDS: RANEXA PO SCH (09:10)
[2019-02-13] MEDS: ASPIRIN EC PO SCH (09:10)
[2019-02-13] MEDS: NORVASC PO SCH (09:10)
--- NOTE | 2019-02-13 10:32 | EKG Report ---
Test Performed on : 02/13/2019 10:05:18 AM Test Reason : chest pain Blood Pressure : / mmHG Vent. Rate : 056 BPM Atrial Rate : 056 BPM P-R Int : 164 ms QRS Dur : 114 ms QT Int : 464 ms P-R-T Axes : 024 -37 047 degrees QTc Int : 447 ms Sinus bradycardia. Left axis deviation Possible Anterior infarct (cited on or before 16-FEB-2018) Abnormal ECG When compared with ECG of 10-FEB-2019 06:21, Nonspecific T wave abnormality, improved in Lateral leads QT has lengthened Confirmed by Carlos Ling MD ([id number]) on 02/13/2019 8:52:30 PM
[2019-02-13 11:01] VITALS: BP 137/76
--- NOTE | 2019-02-14 07:50 | DISCHARGE SUMMARY ---
ADMISSION DATE: 02/09/2019 DISCHARGE DATE: 02/13/2019 DISCHARGE DISPOSITION: Home. DISCHARGE CONDITION: The patient has occasional episodes of chest discomfort and dizziness. His medication regimen has been optimized. Ultrasound of carotid results is pending. However, he had recent ultrasound performed at [facility] in October of 2018 which was unremarkable for carotid artery stenosis. DISCHARGE DIAGNOSES: 1. Anginal chest pain due to residual stenosis in LAD, not amenable to intervention considering the small size of the artery. 2. Episodic dizziness of unclear etiology. 3. Sinus bradycardia due to beta-skyla use. 4. Acute kidney injury due to poor oral intake. OTHER DIAGNOSES: 1. Chronic systolic congestive heart failure with reduced ejection fraction. 2. Essential hypertension. 3. Hyperlipidemia. 4. Chronic gastroesophageal reflux disease. DISCHARGE MEDICATIONS: 1. Atorvastatin 20 mg at nighttime. 2. Aspirin 81 mg daily. 3. Entresto 51 mg tablet 1 tablet b.i.d. 4. Isosorbide mononitrate extended release 30 mg daily. 5. Amlodipine 10 mg daily. 6. Omeprazole 20 mg daily. 7. Clopidogrel 75 mg daily. 8. Carvedilol 3.125 mg b.i.d. 60 tablets have been prescribed. 9. Ranolazine 1000 mg b.i.d. 120 tablets have been prescribed. VITALS: At the time of discharge, temperature 98.4 degrees, pulse 58, respiratory 20 and blood pressure 137/76. He is saturating 97% on room air. PHYSICAL EXAMINATION: General: The patient does not appear in any acute distress. Morbidly obese. Oral cavity is moist. Lungs: Air entry bilaterally equal. No wheeze or crackles. Cardiovascular: S1, S2 normal. Bradycardic. No murmur, rub, or gallop. Abdomen: Soft, nontender. Extremities: No lower extremity edema. Neurologic: He is alert and oriented x3. He is able to go to the bathroom and take a shower. LABORATORY: Significant labs at the time of discharge, WBC 5.9, hemoglobin 14.6, and platelet 183,000. Potassium 4.3, BUN 1.1. Creatinine 1.1, which improved from 1.4 on admission. BUN of 18. MICROBIOLOGY: Significant microbiology during hospital admission none. SIGNIFICANT IMAGING DURING HOSPITAL ADMISSION: EKG on admission had sinus bradycardia and left axis deviation. Myocardial perfusion scan with nuclear medicine on 02/11 had a mildly abnormal post-stress myocardial perfusion scan without any scintigraphic evidence of inducible ischemia. There was enlargement of left ventricular chamber with tiny focal apical anterior defect as well as focal basal inferior defect, both of which may represent attenuation artifact. Mild to moderately decreased ejection fraction of about 40 to 45 percent. HOSPITAL COURSE SUMMARY: Mr. Stevens is 58 years old man with past medical history of coronary artery disease status post percutaneous intervention in the past with recent cardiac catheterization in January of 2018 showing 90% stenosis in mid segment of LAD, which was deemed not amenable to intervention considering a small caliber vessel and diffuse disease, congestive heart failure with reduced ejection fraction of about 45 to 50 percent on echocardiogram, essential hypertension, morbid obesity, who presented with chief complaints of anginal chest heaviness and lightheadedness of about 4 to 5 days duration which was increasing on physical exertion associated with shortness of breath. He follows up with Dr. Kelly in his office. Apparently, patient has been having these episodes since the last few months, and he had underwent MRI, echocardiogram and heart monitor about 2 months prior to current admission which were unremarkable. He was found to be bradycardic at that time, and his carvedilol dose was decreased from 12.5 to 6.25. However, his chest discomfort was concerning and that is why this time around he presented to the emergency room. During this hospital admission, he did have episodes of bradycardia with heart rate of as low as 45 at which point he was feeling dizzy so his carvedilol dose was further decreased to 3.125 mg. He underwent nuclear medicine stress test which did not detect any inducible ischemia. His medication regimen for his coronary artery disease was maximized with medications of Entresto, Coreg, aspirin, Plavix, Imdur, statin, and amlodipine. He was also on ranolazine. Despite this, intermittently he did have episodes of dizziness which were of unclear etiology. Ultrasound carotid has been performed. The report is pending. However, I just received outpatient workup at [facility] performed in October in which his ultrasound of carotids were unremarkable. At the time of discharge, the patient was extensively counseled about his residual coronary artery disease and need for medical optimization for it. He was counseled that though bradycardia could cause dizziness, we have decreased his regimen and he should take it as tolerated and see Dr. Kelly in his office. We also talked about that the cardiology office would contact him to get an outpatient monitor for about 1 month heart monitoring. TIME SPENT: At the time of discharge, more than 30 minutes spent in discharging him. All of his questions were satisfactorily answered. cc: Luan Kent MD
--- NOTE | 2019-02-15 20:39 | Carotid Study ---
DATE: 02/12/2019 PROCEDURE: Carotid duplex imaging. REFERRING PHYSICIAN: Hussein Kent MD. INTERPRETING PHYSICIAN: Kamlesh Spring MD. TECH: [place]. INDICATIONS: Carotid artery disease. FINDINGS: There is no significant plaque, turbulent flow or elevated velocity in either carotid system. The percent stenosis is 0-39% bilaterally. There is antegrade vertebral flow bilaterally. OBSERVED DATA RIGHT LEFT Brachial Blood Pressure Carotid Pulse Bruits: Carotid/Sub DIAGRAM OF ULTRASOUND IMAGING R L RIGHT INT EXT INT EXT LEFT Frank (cm/s) Frank (cm/s) Subclavian Subclavian CCA Proximal CCA Proximal CCA Distal CCA Distal Bulb Bulb ICA Proximal ICA Proximal ICA Mid ICA Mid ICA Distal ICA Distal ECA ECA Vertebral Vertebral ICA/CCA Ratio ICA/CCA Ratio % Stenosis % Stenosis PHYSICIAN INTERPRETATION: Unremarkable carotid duplex study. cc: MD Luan Mckinney MD
== END 2019-02-13 13:25 | disposition home or self-care (01) | DRG 303 ==
LOC: ED 13:11 → 3N 13:11 → OBSVTOIN 15:31 → SUATTDRO 15:31
PROVIDERS: ATTEND Internal Medicine
CPT/HCPCS: 71010; 71020; 71045; 71046; 78452; 80048; 80053; 80061; 82550; 82553; 83735; 83880; 84484; 85025; 85610; 85730; 93005; 93010; 93017; 93880; 94761; 99285; A9270; A9500; J2785; J7030